=== PATIENT | female | born 1960 | race Two or more races ===

== ENCOUNTER 2020-08-07 07:29 | Day surgery (SDC) | payer BC ==
[2020-08-05 15:52] VITALS: BMI 38.6
[2020-08-07] MEDS ORDERED: PROPOFOL 20 ML ONE ×3 (07:48)
[2020-08-07] MEDS ORDERED: LIDOCAINE HCL/PF 2% SDV 5ML VIAL ONE (07:48)
[2020-08-07 09:14] VITALS: TEMP 97.6
[2020-08-07 09:38] VITALS: BP 112/64; PULSE 76
== END 2020-08-07 09:39 | disposition home or self-care (01) ==
LOC: FASU-ENDO 07:29
PROVIDERS: ATTEND Internal Medicine Gastroenterology
PROC: 0DB98ZX Excision of Duodenum, Via Natural or Artificial Opening Endoscopic, Diagnostic (ICD-10-PCS; 2020-08-07)
PROC: 0DB78ZX Excision of Stomach, Pylorus, Via Natural or Artificial Opening Endoscopic, Diagnostic (ICD-10-PCS; 2020-08-07)
PROC: 0D747ZZ Dilation of Esophagogastric Junction, Via Natural or Artificial Opening (ICD-10-PCS; 2020-08-07)
PROC: 0DBN8ZX Excision of Sigmoid Colon, Via Natural or Artificial Opening Endoscopic, Diagnostic (ICD-10-PCS; principal; 2020-08-07 08:29)
DX: Z12.11 Encounter for screening for malignant neoplasm of colon (principal); D12.5 Benign neoplasm of sigmoid colon; R13.10 Dysphagia, unspecified; R12 Heartburn; K29.70 Gastritis, unspecified, without bleeding